=== PATIENT | male | born 1950 | race Caucasian/White ===

== ENCOUNTER → 2016-09-13 | Day surgery (SDC) | payer BC ==
[2016-09-12 11:34] LABS: BASOPHILS % (AUTO) 1.2 % (0.0-2.0); EOSINOPHILS % (AUTO) 1.4 % (0.0-3.0); MEAN CORPUSCULAR HEMOGLOBIN 31.4 PG (27.0-31.0); MEAN CORPUSCULAR HGB CONC 33.4 G/DL (32.0-36.0); MEAN CORPUSCULAR VOLUME 94 FL (80-99); MEAN PLATELET VOLUME 7.1 FL (6.5-10.1); MONOCYTES % (AUTO) 7.8 % (1.0-10.0); NEUTROPHILS % (AUTO) 47.6 % (45.0-75.0); PLATELET COUNT 230 K/UL (150-450); RED BLOOD COUNT 5.87 M/UL (4.70-6.10); RED CELL DISTRIBUTION WIDTH 12.9 % (11.6-14.8); WHITE BLOOD COUNT 5.8 K/UL (4.8-10.8)
[2016-09-12 11:48] LABS: INR 0.9 (0.9-1.1); PROTHROMBIN TIME 9.6 SEC (9.30-11.50)
[2016-09-12 11:54] LABS: ALANINE AMINOTRANSFERASE 21 U/L (3-41); ALBUMIN/GLOBULIN RATIO 1.8 (1.0-2.7); ANION GAP 13 (5-15); ASPARTATE AMINO TRANSFERASE 20 U/L (5-40); CALCIUM 9.9 mg/dL (8.6-10.2); CARBON DIOXIDE 29 mEQ/L (20-30); CHLORIDE 100 mEQ/L (98-107); GLOMERULAR FILTRATION RATE > 60 mL/min (>60); HEMOLYSIS 14; POTASSIUM 4.3 mEQ/L (3.4-4.9); SODIUM 142 mEQ/L (135-145); TOTAL PROTEIN 7.7 g/dL (6.6-8.7)
--- NOTE | 2016-09-12 11:56 | Diagnostic Imaging Report ---
Indication: Chest pain and cough Technique: PA and lateral views of the chest. Findings: Comparison: None The bones and extra pulmonary soft tissues, cardiomediastinal silhouette, pulmonary vasculature and parenchyma, and pleural surfaces are unremarkable. IMPRESSION: Negative PA and lateral chest radiographs
--- NOTE | 2016-09-12 19:38 | History and Physical Report ---
DATE OF ADMISSION: 09/13/2016 DATE: Surgery tomorrow 09/13/2016. REASON FOR ADMISSION: Outpatient repair of left inguinal hernia. HISTORY OF PRESENT ILLNESS: The patient is a 65-year-old male with a history of increasing left inguinal hernia bulge, he saw his attending physician, Dr. Lay, who examined him and referred him to me for evaluation and surgical care. There is no history suggestive of small bowel obstruction or incarceration. PAST MEDICAL HISTORY: Pertinent for repair of a right inguinal hernia in the past. No history of diabetes, TB, lung or heart disease. PAST SURGICAL HISTORY: He has got a history of tonsillectomy and adenoidectomy. MEDICATIONS: Occasional pain medication. ALLERGIES: Shrimp. REVIEW OF SYSTEMS: None pertinent except for above. PHYSICAL EXAMINATION: GENERAL: Well developed, middle-aged male, in no distress. VITAL SIGNS: Blood pressure is 120/80, temperature is 98.6 degrees, pulse is 72, and respirations 16. HEENT: Normal. NECK: Supple. LUNGS: Clear. HEART: Rhythmic and regular. No murmurs. ABDOMEN: Soft and flat. Bowel sounds are normoactive. There is a right inguinal hernia scar after repair and there is a left inguinal reducible hernia. GENITALIA: Normal male. Both testes descended. RECTAL: Deferred. EXTREMITIES: Good range of motion. No edema or cyanosis. IMPRESSION: Left inguinal hernia. PLAN: The patient is admitted to undergo outpatient repair of a left inguinal hernia with mesh. He understands the nature of the procedure, the indications, risks, benefits, and possible complications and he wishes to proceed. Tommie Murphy M.D. DR: RADHA JOB#: [id number] CC:
[2016-09-13] VITALS (11 sets, daily range): BP systolic 111–139; BP diastolic 69–79
[~2016-09-13] VITALS: Ht 175.3 cm; Wt 72.6 kg
[~2016-09-13] MED LIST: Bupivacaine w/Epi 0.25% 30ml Vial INJ ONE; Hydromorphone 0.5mg/0.5ml inj IVP PRN; Ketorolac 30mg Inj IV PRN; LR 1000ml ONE; NKM; NS Irrig 1000ml IRRIG ONE; NS Irrig 1000ml ONE; Propofol 10mg/ml 20ml IV ONE; Sterile Water Irrig 1000ml IRRIG ONE; fentaNYL 250mcg/5ml ONE
--- NOTE | 2016-09-13 07:12 | Pre-Procedure Note/Attestation ---
Pre-Procedure Note/Attestation Complete Prior to Procedure Planned Procedure: left Procedure Narrative: repair of left inguinal hernia Indications for Procedure Pre-Operative Diagnosis: left inguinal hernia Attestation I attest that I discussed the nature of the procedure; its benefits; risks and complications; and alternatives (and the risks and benefits of such alternatives ), prior to the procedure, with the patient (or the patient's legal manufacturer's service representative). I attest that, if there was a reasonable possibility of needing a blood transfusion, the patient (or the patient's legal manufacturer's service representative) was given the [facility] standardized written summary, pursuant to the Ryan Dorie Blood Safety Act ([place] Health and Safety Code # 1645, as amended). I attest that I re-evaluated the patient just prior to the surgery and that there has been no change in the patient's H&P, except as documented below: BRAYAN MARTIN Sep 13, 2016 07:12
--- NOTE | 2016-09-13 08:35 | Brief Operative Note ---
Immediate Post Operative Note Operative Note Pre-op Diagnosis: left inguinal hernia Procedure: repair of left inguinal hernia with mesh Post-op Diagnosis: direct inguinal hernia Large Surgeon: wong Anesthesia: general Specimen: none Condition: stable Estimated Blood Loss: minimal Drains: none Implant(s) used?: Yes BRAYAN MARTIN Sep 13, 2016 08:35
--- NOTE | 2016-09-13 08:40 | Anethesia Preoperative Eval ---
Anesthesia Pre-op PMH/ROS General Date of Evaluation: Sep 13, 2016 Time of Evaluation: 07:00 ASA Score: ASA 1 Mallampati Score Class I : Soft palate, uvula, fauces, pillars visible Class II: Soft palate, uvula, fauces visible Class III: Soft palate, base of uvula visible Class IV: Only hard plate visible Mallampati Classification: Class I Anesthesia History: none Allergies: Coded Allergies: No Known Allergies (Unverified , 09/12/16) Anesthesia Pre-op Phys. Exam Physician Exam Last Vital Signs Date Time Temp Pulse Resp B/P Pulse Ox O2 Delivery O2 Flow Rate FiO2 09/13/16 08:35 97.3 82 18 112/69 97 Room Air Anesthesia Pre-op A/P Labs Hematology Test 09/12/16 11:10 White Blood Count 5.8 K/UL (4.8-10.8) Red Blood Count 5.87 M/UL (4.70-6.10) Hemoglobin 18.5 G/DL (14.2-18.0) *H Hematocrit 55.2 % (42.0-52.0) H Mean Corpuscular Volume 94 FL (80-99) Mean Corpuscular Hemoglobin 31.4 PG (27.0-31.0) H Mean Corpuscular Hemoglobin Concent 33.4 G/DL (32.0-36.0) Red Cell Distribution Width 12.9 % (11.6-14.8) Platelet Count 230 K/UL (150-450) Mean Platelet Volume 7.1 FL (6.5-10.1) Neutrophils (%) (Auto) 47.6 % (45.0-75.0) Lymphocytes (%) (Auto) 42.0 % (20.0-45.0) Monocytes (%) (Auto) 7.8 % (1.0-10.0) Eosinophils (%) (Auto) 1.4 % (0.0-3.0) Basophils (%) (Auto) 1.2 % (0.0-2.0) Coagulation Test 09/12/16 11:10 Prothrombin Time 9.6 SEC (9.30-11.50) Prothromb Time International Ratio 0.9 (0.9-1.1) Activated Partial Thromboplast Time 26 SEC (23-33) Chemistry Test 09/12/16 11:10 Sodium Level 142 mEQ/L (135-145) Potassium Level 4.3 mEQ/L (3.4-4.9) Chloride Level 100 mEQ/L (98-107) Carbon Dioxide Level 29 mEQ/L (20-30) Anion Gap 13 (5-15) Blood Urea Nitrogen 14 mg/dL (7-23) Creatinine 1.0 mg/dL (0.7-1.2) Estimat Glomerular Filtration Rate > 60 mL/min (>60) Glucose Level 120 mg/dL (74-106) H Calcium Level 9.9 mg/dL (8.6-10.2) Total Bilirubin 0.2 mg/dL (0.0-1.2) Aspartate Amino Transf (AST/SGOT) 20 U/L (5-40) Alanine Aminotransferase (ALT/SGPT) 21 U/L (3-41) Alkaline Phosphatase 89 U/L (40-129) Total Protein 7.7 g/dL (6.6-8.7) Albumin 5.0 g/dL (3.5-5.2) Globulin 2.7 g/dL Albumin/Globulin Ratio 1.8 (1.0-2.7) Dian Garcia MD Sep 13, 2016 08:40
--- NOTE | 2016-09-13 08:41 | Immediate Post-Op Evaluation ---
Immediate Post-Op Evalulation Immediate Post-Op Evalulation Date of Evaluation: Sep 13, 2016 Time of Evaluation: 08:45 Nausea: No Vomiting: No Patient Status: awake Hydration Status: adequate Given Within 1 Hr of Incision: Yes Dian Garcia MD Sep 13, 2016 08:41
--- NOTE | 2016-09-13 08:42 | 48 Hour Post Anesthesia Eval ---
Post Anesthesia Evaluation Procedure: left inguinal hernia repair Date of Evaluation: Sep 13, 2016 Time of Evaluation: 09:30 Airway: patent Nausea: No Vomiting: No Hydration Status: adequate Mental Status/LOC: patient returned to baseline Follow-up care needed: ready to discharge Dian Garcia MD Sep 13, 2016 08:42
--- NOTE | 2016-09-13 18:27 | Operative Note - Dictated ---
DATE OF OPERATION: 09/13/2016 SURGEON: Tommie Murphy M.D. EXTERIOR WORK HELPER: None. ANESTHESIOLOGIST: Dr. Garcia. ANESTHESIA: General. PREOPERATIVE DIAGNOSIS: Left inguinal hernia. POSTOPERATIVE DIAGNOSIS: Left inguinal hernia. NAME OF OPERATION: Repair of left inguinal hernia with Prolene mesh. FINDINGS AND INDICATIONS: The patient is a very pleasant, 66-year-old male with a history of progressively enlarging left inguinal hernia with some pain and tenderness. There is no history suggestive of incarceration or bowel obstruction. Because of the presentation, the patient came to see me and I advised him to undergo repair of the left inguinal hernia. On exam, he had this bulge, which was reducible and at the time of the operation indeed a moderate-sized direct inguinal hernia was found, which was repaired uneventfully as described. DESCRIPTION OF PROCEDURE: With the patient lying in the supine position on the operating table, under general anesthesia with the entire left groin and lower abdominal regions prepped and draped in usual sterile fashion with Betadine, an oblique incision was carried out over the wound, subcutaneous tissues divided, the hernia sac was then carefully dissected free and isolated and then imbricated with 2-0 Vicryl material. The Prolene mesh segment was then cut to fit to repair the pelvic floor with a continuous 2-0 Prolene suture approximating the shelving edge of the inguinal ligament to the combined aponeurosis of the internal oblique aponeurosis and transversus abdominis muscles. A slit was made along the lateral aspect of the mesh to allow the cord structures to go through and the Prolene sutures snugly ligated recreating a nice internal ring. The area was irrigated. Hemostasis was adequate. The cord and the nerve were then replaced anatomically after making sure there was no indirect inguinal hernia sac. The external oblique aponeurosis was closed with 3-0 Vicryl suture and the subcutaneous tissues with 3-0 Vicryl interrupted sutures and the skin with 4-0 Vicryl subcuticular sutures and Steri-Strips. Marcaine 0.5% with epinephrine 20 mL was injected for long-acting local anesthetic. The patient tolerated the procedure well. Estimated blood loss was less than 5 mL. Sponge and needle counts were correct. He went to the recovery room in stable condition. Tommie Murphy M.D. DR: SUKUMAR JOB#: [id number] CC:
--- NOTE | 2016-09-24 11:44 | Cardiology Report ---
APPROVED REPORT EKG Measurement Heart [id number] PA [id number] Normal sinus rhythm Normal ECG
== END | disposition home or self-care (01) ==
LOC: SUR 05:05
DX: K40.90 Unilateral inguinal hernia, without obstruction or gangrene, not specified as recurrent (principal); Z91.013 Allergy to seafood
CPT/HCPCS: 36415; 49505; 71020; 80053; 85025; 85610; 85730; 93005; C1781; J0690; J2704; J3010; J7120; 94003; 94150